=== PATIENT | female | born 1945 | race Caucasian/White ===

== ENCOUNTER → 2017-03-29 | Outpatient (CLI) | payer MEDICARE, BC ==
[~2017-03-29] MED LIST: ASPIRIN 32325 MG/TAB PO; CEPHALEXIN500 M1 PO; CIPRO 250MG TA250 MG PO; DOXYCYCLINE 10100 MG PO; EVISTA 60MG60 MG/TAB PO; FOSAMAX 70MG TA70 MG PO; GLUCOTROL XL5 MG/TAB PO; GLUMETZA1000 MG PO; LEVAQUIN 5500 MG/TA1 PO; LOTENSIN40 MG PO; NIASPAN 500MG500 MG PO; NORCO 325 MG-51 TAB PO; NORMODYNE200 MG PO; NORVASC 5MG5 MG/TAB PO; PERCOCET 325 MG1 TA2 PO; TRANDATE 200MG200 MG PO; ULTRAM 50MG TAB50 MG PO; ZOCOR 20MG20 MG PO; ZOFRAN ODT4 MG PO; [UNRECOGNIZED DRUG - OTHER] PO
== END ==
LOC: MC.RAD 08:06
DX: Z12.31 Encounter for screening mammogram for malignant neoplasm of breast (principal); Z98.890 Other specified postprocedural states

== ENCOUNTER → 2018-04-16 | Outpatient (CLI) | payer MEDICARE, BC | LOC: MC.RAD 10:31 | DX: Z12.31 Encounter for screening mammogram for malignant neoplasm of breast (principal); Z98.890 Other specified postprocedural states ==

== ENCOUNTER → 2018-05-23 | Outpatient (CLI) | payer MEDICARE, BC ==
[~2018-05-23] VITALS: Ht 167.6 cm; Wt 120.0 kg
[~2018-05-23] MED LIST changes: +BENICAR40 MG PO; +LASIX 40MG TABL40 MG PO; +ZYLOPRIM 300MG300 MG PO
[2018-05-23 15:34] VITALS: BP 143/49; PULSE 63; TEMP 98.4
== END ==
LOC: EUO 14:40
DX: M81.0 Age-related osteoporosis without current pathological fracture (principal)
CPT/HCPCS: J3489

== ENCOUNTER → 2019-04-22 | Outpatient (CLI) | payer MEDICARE, BC | LOC: MC.RAD 11:11 | DX: Z12.31 Encounter for screening mammogram for malignant neoplasm of breast (principal); Z98.890 Other specified postprocedural states ==

== ENCOUNTER 2019-05-16 14:34 | Outpatient (CLI) | payer MEDICARE, BC ==
[~2019-05-16] VITALS: Ht 167.6 cm; Wt 113.0 kg
[~2019-05-16 14:34] MED LIST changes: -GLUMETZA1000 MG PO; +GLUMETZA500 MG PO; -ZOCOR 20MG20 MG PO; +ZOCOR 40MG40 MG PO
[2019-05-16 15:09] VITALS: BP 126/59; PULSE 59; TEMP 98.2
== END 2019-05-16 16:35 | disposition home or self-care (01) ==
LOC: EUO 14:34
DX: M81.0 Age-related osteoporosis without current pathological fracture (principal)
CPT/HCPCS: J3489

== ENCOUNTER 2021-06-01 16:11 | Outpatient (CLI) | payer MEDICARE, BC ==
[~2021-06-01] VITALS: Ht 165.1 cm; Wt 111.1 kg
[~2021-06-01 16:11] MED LIST changes: +GLUCOPHAGE500 MG/TAB PO; +MASON NATURAL2000 IU PO; +RECLAST5 MG/100 M IV
[2021-06-01 16:45] VITALS: BP 163/78; PULSE 68; TEMP 97.9
== END 2021-06-01 18:07 | disposition home or self-care (01) ==
LOC: EUO 16:11
DX: M81.0 Age-related osteoporosis without current pathological fracture (principal)
CPT/HCPCS: J3489

== ENCOUNTER 2023-07-05 12:36 | Inpatient (IN) | payer MEDICARE, BC ==
[~2023-07-05] VITALS: Ht 165.1 cm; Wt 117.0 kg
[~2023-07-05 12:36] MED LIST changes: +ASPIRIN 81M81 MG/TA2 PO; +ZOSYN 3 GM-0.371 PD1 IV
[2023-07-05 13:34] LABS: EOS % 0.3 % (0.0-4.0); GRAN # 2.9 K/mm3 (1.4-6.5); GRAN % 74.9 % (42.2-75.2); HEMATOCRIT 39.1 % (37.0-47.0); LYMPH # 0.6 K/mm3 (1.2-3.4); LYMPH % 14.4 % (20.0-51.0); MEAN CELL VOLUME 96 fl (80.0-100.0); MEAN CORPUSCULAR HEMOGLOBIN 32 pg (27-31); MEAN CORPUSCULAR HGB CONC 33 g/dl (33.0-37.0); MEAN PLATELET VOLUME 8.7 fl (7.4-10.4); MONO # 0.4 K/mm3 (0.1-0.6); MONO % 9.9 % (1.7-9.3); PLATELET COUNT 117 K/mm3 (130-400); RED BLOOD COUNT 4.09 M/mm3 (4.10-5.30); REDCELL DISTRIBUTION WIDTH-CV 12.7 % (11.5-14.5)
[2023-07-05 13:43] LABS: BILIRUBIN,TOTAL 0.8 mg/dL (0.2-1.2); CALCIUM 8.8 mg/dL (8.4-10.2); CREATININE, serum 0.85 mg/dL (0.57-1.11); POTASSIUM 4.1 mmol/L (3.5-4.5); TOTAL PROTEIN 6.2 gm/dL (6.2-8.1)
[2023-07-05 14:13] LABS: PH 5.5 (5.0-8.5); URINE APPEARANCE Hazy (CLEAR/HAZY); URINE COLOR Yellow (YELLOW); URINE GLUCOSE Negative (NEGATIVE); URINE KETONE 2+ (NEGATIVE); URINE PROTEIN(semi-quant) 2+ (NEGATIVE)
[2023-07-05 14:14] LABS: URINE BLOOD 3+ (NEGATIVE); URINE NITRATE Negative (NEGATIVE)
[2023-07-05 14:15] LABS: MUCOUS Present (NOT PRESENT); URINE BACTERIA Moderate /hpf (NONE SEEN)
[2023-07-05 14:16] LABS: AMORPHOUS CRYSTAL Present (NOT PRESENT); SQUAMOUS EPITHELIAL 0-2 /hpf (0-10)
[2023-07-05 15:24] LABS: COLLECTION METHOD CATHETER
[2023-07-05] MEDS ORDERED: ASPIRIN 81M81 MG/TA2 PO (15:56)
[2023-07-05 16:30] LABS: PARTIAL THROMBOPLASTIN TIME 31.8 SECONDS (26.0-37.0)
--- NOTE | 2023-07-05 17:04 | NUR ---
pt admitted to medicval unit around 1700. Alert and oriented x4. Shift assessment complete. bed alarm set, call light within reach.
[2023-07-05 17:05] VITALS: BP 149/43; PULSE 73; TEMP 100.1
--- NOTE | 2023-07-05 18:50 | NUR ---
PATIENT RESTING IN BED WITH DR. DOSS IN ROOM. NO ACUTE DISTRESS NOTED. PATIENT CARE ASSUMED FROM RICHA MENARD AT THIS TIME. HEPARIN DRIP INFUSING AT 10 ML/HR WITH NO COMPLICATIONS NOTED. ALL NEEDS MET. BED IN LOW POSITION WITH WHEELS LOCKED WITH RAILS UP X3 AND CALL LIGHT WITHIN REACH.
[2023-07-05 20:00] VITALS: BP_SYST 133
[2023-07-05 20:07] VITALS: BP 132/58; PULSE 60; TEMP 99.5
--- NOTE | 2023-07-05 22:00 | NUR ---
PATIENT RESTING IN BED WITH TV OFF WITH NO FAMILY PRESENT WITH NO ACUTE DISTRESS NOTED. PATIENT ON ROOM AIR. HEPARIN INFUSING INTO RIGHT FOREARM WITH NO COMPLICATIONS NOTED. PATIENT ASSESSMENT AND MEDICATION ADMINISTRATION COMPLETED AT THIS TIME. PATIENT TOLERATED WELL. ALL NEEDS MET. BED IN LOW POSITION WITH WHEELS LOCKED WITH RAILS UP X3 AND CALL LIGHT WITHIN REACH. BED ALARM TURNED ON.
[2023-07-05 23:15] VITALS: BP 133/43; PULSE 62; TEMP 99
[2023-07-06] VITALS (14 sets, daily range): BP systolic 97–155; BP diastolic 48–74; PULSE 63–84; TEMP 98.1–100.8
[2023-07-06 07:59] LABS: BASO % 0.2 % (0.0-2.0); GRAN # 3.1 K/mm3 (1.4-6.5); GRAN % 75.3 % (42.2-75.2); HEMOGLOBIN 12.7 g/dl (12.5-16.0); LYMPH # 0.6 K/mm3 (1.2-3.4); LYMPH % 13.8 % (20.0-51.0); MEAN CELL VOLUME 92 fl (80.0-100.0); MEAN CORPUSCULAR HEMOGLOBIN 32 pg (27-31); MEAN CORPUSCULAR HGB CONC 35 g/dl (33.0-37.0); MEAN PLATELET VOLUME 9.4 fl (7.4-10.4); MONO # 0.4 K/mm3 (0.1-0.6); MONO % 9.5 % (1.7-9.3); PLATELET COUNT 108 K/mm3 (130-400); RED BLOOD COUNT 3.98 M/mm3 (4.10-5.30); REDCELL DISTRIBUTION WIDTH-CV 12.6 % (11.5-14.5)
[2023-07-06 08:00] LABS: HEMATOCRIT 36.6 % (37.0-47.0)
[2023-07-06 08:20] LABS: ALBUMIN 2.7 gm/dL (3.4-4.8); BILIRUBIN,TOTAL 0.7 mg/dL (0.2-1.2); CALCIUM 8.7 mg/dL (8.4-10.2); CHOLESTEROL RISK RATIO 4.2; CREATININE, serum 0.81 mg/dL (0.57-1.11); POTASSIUM 3.8 mmol/L (3.5-4.5); TOTAL PROTEIN 5.9 gm/dL (6.2-8.1)
--- NOTE | 2023-07-06 08:30 | NUR ---
PT LAYING IN BED UPON ENTERING. ASSESSMENT DONE, MEDS GIVEN PER ORDER. PT DENIES PAIN AT THIS TIME. HEPARIN RUNNING AT 8MLS/HR PER ORDER IN RIGHT FOREARM IV. LEFT WRIST INT FLUSHES WELL WITHOUT COMPLICATIONS. PT TEMP 100.8 DURING MORNING VITALS, PRN TYLENOL GIVEN. PT COVERED WITH MULTIPLE BLANKETS AT THIS TIME. ALL LUNG MCGRAW DIMINISHED. PT HAS BILATERAL LOWER EXTREMITY EDEMA NONPITTING, LEGS HAVE A BROWN DISCOLORATION NOTED. PT HAS A BANDAID TO RIGHT SECOND TOE. TOE APPEARS TO HAVE BLACK SCAB ON TOP. AFTER ASSESSMENT THIS NURSE NOTICED PT HAVING INCREASED WORK OF BREATHING. PT REPORTS BEING SHORT OF BREATH AND O2 SATS 87-89% ON ROOM AIR. PT PLACED ON 1L NASAL CANNULA, O2 SATS 93%. PT EDUCATED TO BREATH IN THROUGH NOSE AND OUT THROUGH MOUTH AND REPORTS SOME IMPROVEMENT IN SHORTNESS OF BREATH. PT SET UP FOR BREAKFAST AND DENIES NEEDS AT THIS TIME. BED IN LOWEST POSITION, CALL LIGHT IN REACH
--- NOTE | 2023-07-06 09:06 | NUR ---
HEPARING DRIP DISCONTINUED PER ORDER. RIGHT FOREARM IV FLUSHES. WOUND CARE AND RESPIRATORY AT BEDSIDE UPON THIS NURSE LEAVING
--- NOTE | 2023-07-06 16:32 | NUR ---
Social workrer called pt's room phone to complete intake due to being in isolation. Pt reports she lives in [place] with her siblings, Kristen and [id number], Thang [phone]. She confirms she sees Dr. Gregory for PCP and obtains medications from [facility] with no issues. She is independent with ADLS and uses no DME. She reports she uses a FWW here. SW verified PT/OT are not reccomending one at this time. SW went over reccomendation for HH. Pt said, "not at this time, no." She confirms she used someone in the past. SW advised she can inform SW if she changes her mind, but if she leaves here, her PCP would establish HH. Pt verbalized understanding. Pt does not have a DPOA-HC, but a copy was left with RN for pt to look over at her request. Her NOK is her sister, Kristen. Pt would like to return home at discharge. Discharge Plan: Home
--- NOTE | 2023-07-06 18:18 | NUR ---
PT LAYING IN BED UPON ENTERING. ANTIBIOTIC COMPLETE. PT ON 2L NASAL CANNULA AND DENIES SHORTNESS OF BREATH AT THIS TIME. BED IN LOWEST POSITION, CALL LIGHT IN REACH
--- NOTE | 2023-07-06 23:15 | NUR ---
NURSING SHIFT ASSESSMENT COMPLETED. THE PATIENT WAS ALERT AND APPROPRIATE. THE PATIENT REQUESTED ASSISTANCE TO THE BATHROOM. THE PATIENT WAS ABLE TO GET HERSELF OUT OF THE BED AND TO A STANDING POSITON WITHOUT HELP. THE PATIENT AMBULATED WITH A WALKER AND A STEADY GAIT. THE PATIENT VOIDED WITHOUT DIFFICULTY. THE PATIENT WAS ABLE TO GET HERSELF BACK INTO BED WITHOUT ASSISTANCE. THE USE OF THE CALL LIGHT WAS REVIEWED AND THE PATIENT VERBALIZED UNDERSTANGING AND DEMONSTRATED ITS USE. THE PATIENT DENIED PAIN OR DISCOMFORT. ALL PERSONAL BELONGINGS WITHIN REACH. CALL LIGHT WITHIN REACH. BED IN THE LOW POSITION AND BED ALARM ON.
[2023-07-07] VITALS (11 sets, daily range): BP systolic 53–153; BP diastolic 42–61; PULSE 57–63; TEMP 97.9–98.7
[2023-07-07 07:32] LABS: HEMOGLOBIN 11.9 g/dl (12.5-16.0); MEAN CELL VOLUME 94 fl (80.0-100.0); MEAN CORPUSCULAR HEMOGLOBIN 31 pg (27-31); MEAN CORPUSCULAR HGB CONC 33 g/dl (33.0-37.0); MEAN PLATELET VOLUME 9.2 fl (7.4-10.4); PLATELET COUNT 114 K/mm3 (130-400); RED BLOOD COUNT 3.83 M/mm3 (4.10-5.30); REDCELL DISTRIBUTION WIDTH-CV 12.4 % (11.5-14.5)
[2023-07-07 07:57] LABS: ALBUMIN 2.6 gm/dL (3.4-4.8); BILIRUBIN,TOTAL 0.4 mg/dL (0.2-1.2); CALCIUM 8.7 mg/dL (8.4-10.2); CREATININE, serum 0.97 mg/dL (0.57-1.11); MAGNESIUM 2.1 mg/dL (1.6-2.6); PHOSPHOROUS 2.4 mg/dL (2.3-4.7); POTASSIUM 4.1 mmol/L (3.5-4.5); TOTAL PROTEIN 5.8 gm/dL (6.2-8.1)
--- NOTE | 2023-07-07 07:59 | NUR ---
Lab called reported WBC 1.5 thi morning, report given to Dr. Kim. No further orders.
[2023-07-07 08:21] LABS: BAND 4 % (0-10); LYMPHOCYTE 17 % (20.0-51.0); NEUTROPHILS 75 % (42.0-75.2); PLATELET ESTIMATE NORMAL (NORMAL)
--- NOTE | 2023-07-07 09:16 | NUR ---
SW called patient's room phone to discuss follow up on Home Health. Pt reports "not right now." SW clarified what she meant, she informed SW that she would like to decline HH services. SW discussed DPOA-HC and she reports she has not had a chance to look at it. Discharge Plan: Home
--- NOTE | 2023-07-07 09:40 | NUR ---
Patient is sitting up in bed, just finished her breakfast, alert and oriented x 4, gettin 2L O2 NC. Some sporadic cough. Assessment completed, meds given. No further needs at this time. Call light within reach.
[2023-07-08] VITALS (11 sets, daily range): BP systolic 124–146; BP diastolic 46–81; PULSE 51–62; TEMP 96.7–98.3
--- NOTE | 2023-07-08 00:45 | NUR ---
NURSING SHIFT ASSESSMENT COMPLETED. THE PATIENT WAS ALERT AND ORIENTED. THE PATIENT DENIED PAIN OR DISCOMFORT. THE PATIENT DENIED NEEDS. THE PLAN OF CARE AND EVENING MEDICATIONS REVIEWED. BED ALARM ON, CALL LIGHT WITHIN REACH, BED IN LOW POSITION, PERSONAL BELONGINGS WITHIN REACH. NO S/S OF DISTRESS NOTED.
--- NOTE | 2023-07-08 08:00 | NUR ---
PT LAYING IN BED UPON ENTERING. ASSESSMENT DONE, MEDS GIVEN PER ORDER. PT DENIES PAIN OR SHORTNESS OF BREATH AT THIS TIME. PT ON 1.5L NASAL CANNULA. INT TO RIGHT WRIST FLUSHES WELL WITHOUT COMPLICATIONS. BILATERAL UPPER AND LOWER EXTREMITY EDEMA. RIGHT LOWER EXTREMITY HAS BROWN DISCOLORATION AND FLAKY SKIN. ALL LUNG SOUNDS DIMINISHED. BREAKFAST SET UP AND PT DENIES NEEDS AT THIS TIME. BED IN LOWEST POSITION, CALL LIGHT IN REACH
[2023-07-08 09:18] LABS: ALBUMIN 2.8 gm/dL (3.4-4.8); BILIRUBIN,TOTAL 0.5 mg/dL (0.2-1.2); CALCIUM 9.3 mg/dL (8.4-10.2); CREATININE, serum 1.05 mg/dL (0.57-1.11); HEMATOCRIT 37.5 % (37.0-47.0); HEMOGLOBIN 12.8 g/dl (12.5-16.0); MEAN CELL VOLUME 94 fl (80.0-100.0); MEAN CORPUSCULAR HEMOGLOBIN 32 pg (27-31); MEAN CORPUSCULAR HGB CONC 34 g/dl (33.0-37.0); MEAN PLATELET VOLUME 9.3 fl (7.4-10.4); PLATELET COUNT 169 K/mm3 (130-400); POTASSIUM 4.1 mmol/L (3.5-4.5); RED BLOOD COUNT 3.99 M/mm3 (4.10-5.30); REDCELL DISTRIBUTION WIDTH-CV 12.3 % (11.5-14.5)
[2023-07-08 09:39] LABS: ALBUMIN 2.8 gm/dL (3.4-4.8); CALCIUM 9.5 mg/dL (8.4-10.2); CREATININE, serum 1.06 mg/dL (0.57-1.11); MAGNESIUM 2.2 mg/dL (1.6-2.6); POTASSIUM 4.1 mmol/L (3.5-4.5)
[2023-07-08 10:25] LABS: BAND 4 % (0-10); LYMPHOCYTE 12 % (20.0-51.0); NEUTROPHILS 76 % (42.0-75.2); PLATELET ESTIMATE NORMAL (NORMAL)
--- NOTE | 2023-07-08 12:06 | NUR ---
Data: Patient in her room with the call light on. Grade School Teacher offered a Grade School Teacher visit from the doorway of the room. Assessment: Patient politely declined the Grade School Teacher visit. Plan of Care: Chaplains will remain available as requested by Patient while admitted to this hospital.
--- NOTE | 2023-07-08 19:05 | NUR ---
REPORT GIVEN TO SAILAJA SALAZAR
--- NOTE | 2023-07-08 23:11 | NUR ---
patient lying in bed alert and oriented x4. pt denies chest pain and shortness of breath. IV in RW is patent, site is clean dry and intact. BLE nonpitting edema, brown/ blanchable skin discoloration on RLE, right toe skin intact, general scattered bruising on extremities, right upper arm bruising noted. pt has o further needs, questions or concerns at this time. fall precautions in place, call light within reach, will continue to monitor.
[2023-07-09] VITALS (7 sets, daily range): BP systolic 129–146; BP diastolic 46–59; PULSE 56–69; TEMP 97.8–98.3
--- NOTE | 2023-07-09 07:03 | NUR ---
Bedside report received from SAILAJA Ackerman. Pt sleeping in bed at this time.
--- NOTE | 2023-07-09 08:14 | NUR ---
Shift assessment completed. Pt is awake in bed with no complaints. VSS. Pt reports no pain at this time. Contact/Droplet precautions in place. Call light within reach.
[2023-07-09] MEDS ORDERED: RT Albuterol HFA MDI IH (09:04)
[2023-07-09] MEDS ORDERED: MONODOX100 PO (09:04)
[2023-07-09] MEDS ORDERED: TOPROL XL 25MG25 MG PO (09:08)
[2023-07-09] MEDS ORDERED: PROTONIX 40MG T40 MG PO (09:09)
[2023-07-09] MEDS ORDERED: DECADRON6 MG PO (09:09)
--- NOTE | 2023-07-09 15:31 | NUR ---
Discharge paperwork provided to pt. Pt verbalized understanding of discharge instructions. INT to Rt wrist discontinued with tip intact, pt tolerated well with no complaints. Pt stated that she came in to facility with her personal wallet and she cannot find it. This nurse notified charge nurse Monika. Security, supervisor coffee, and ED were asked if they had seen the wallet and the wallet was not found upon discharge. Pt stated that her personal wallet could have been left in the ambulance that transferred pt to facility. Pt stated she was going to call EMS to ask if they had the personal belonging. Pt left facility with family.
== END 2023-07-09 15:35 | disposition home or self-care (01) | DRG 177 ==
LOC: COL.ER 12:36 → MEDICAL 15:45
PROVIDERS: Nurse Practitioner; Nurse Practitioner Family; Physician Assistant; ADMIT Internal Medicine
DX: U07.1 COVID-19 (principal); I21.A1 Myocardial infarction type 2; J81.1 Chronic pulmonary edema; I73.9 Peripheral vascular disease, unspecified
CPT/HCPCS: G0378; J0248; J1644; J1650; J1815; J7050; J8540; Q9967